=== PATIENT | female | born 1960 | race Caucasian/White ===

== ENCOUNTER 2018-11-19 23:54 | Inpatient (IN) | payer OTHER ==
[~2018-11-19] VITALS: Ht 157.5 cm; Wt 38.6 kg
[~2018-11-19 23:54] MED LIST: ACCUNEB SO1.25 MG/1 INH; ACETAMINOPHEN325 M1 PO; ADVAIR 250-501 EACH IH; ADVAIR 250-501 EACH INH; ADVAIR HFA 230M12 GM; ALBUTEROL INH; ALBUTEROL2.5 MG/3 M PO; ALBUTEROL2.5 MG/31 IH; ALBUTEROL2.5 MG/31 INH; AMOXICILLIN 50500 MG PO; AVELOX 400 MG400 MG PO; Albuterol PO; BUTALB-APAP-CA1 EACH PO; CARDIZEM CD240 MG; CLONIDINE; COMBIVENT IN; DIFLUCAN100 MG PO; DUONEB 2.5-0.5 M3 ML INH; FLUCONAZOLE 10100 MG PO; LEVAQUIN 500 M500 M2 PO; LORTAB 10 MG-3473 ML PO; LORTABELXR PO; MUCINEX TA600 MG/TA2 PO; NORCO 5-325 TA1 EACH PO; NYSTATIN 1100000 U/M PO; PREDNISONE 10 M10 MG PO; PREDNISONE 20 M20 MG PO; SINGULAIR 10 MG10 M1 PO; SPIRIVA INH; SPIRIVA18 MCG INH; TUSNEL CAPSULE1 EACH PO; TUSSIONEX PENN473 ML PO; TYLENOL325 MG PO; VANCOMYCIN1.25 GM/21 IVPB; VENTOLIN HFA 1818 GM INH; VENTOLIN HFA INH8 GM INH; VENTOLIN17 GM INH; VICODIN 5-5001 EACH PO; XANAX 0.25 MG0.25 MG PO; ZPAK PO
[2018-11-20] VITALS (108 sets, daily range): BP systolic 90–137; BP diastolic 57–91
[2018-11-20 00:36] LABS: ABSOLUTE EOSINOPHILS 0.1 thou/uL (0.0-0.7); ABSOLUTE MONOCYTES 1.7 thou/uL (0.0-1.2); ABSOLUTE NEUTROPHILS 8.4 thou/uL (1.6-8.1); BASOPHILS 0.2 %; HEMATOCRIT 43.7 % (37.0-47.0); HEMOGLOBIN 14.3 gm/dL (12.0-15.0); LYMPHOCYTES 16.5 %; MCH 30.2 pg (26.0-34.0); MCHC 32.6 g/dL (28.0-37.0); MCV 92.6 fL (80.0-100.0); MONOCYTES 13.7 %; MPV 9.2 fl. (7.2-11.1); NUCLEATED RBCS 0 /100WBC; PLATELET COUNT* 272 thou/uL (150-400); POLYS 68.6 %; RBC 4.72 mil/uL (4.20-5.00); RDW-CV 14.4 % (10.5-14.5); WBC 12.3 thou/uL (4.0-11.0)
[2018-11-20 00:50] LABS: ANION GAP 2 mmol/L (7-16); BUN 13 mg/dL (7-18); CHLORIDE 95 mmol/L (98-107); CO2 41 mmol/L (21-32); CREATININE 0.7 mg/dL (0.6-1.3); GLUCOSE 128 mg/dL (70-99); POTASSIUM 4.5 mmol/L (3.5-5.1); SODIUM 138 mmol/L (136-145); TROPONIN-I LEVEL <0.06 ng/mL (<0.06)
[2018-11-20 00:52] LABS: ALKALINE PHOSPHATASE 89 U/L (46-116); NT-PRO BRAIN NAT PEPTIDE 154 pg/mL (<300); PROTIME 10.4 Seconds (9.20-11.50); SGOT 17 U/L (15-37); SGPT 37 U/L (30-65); TOTAL BILIRUBIN 0.2 mg/dL (<0.1-1.0); TOTAL PROTEIN 7.7 g/dL (6.4-8.2)
[2018-11-20 01:20] LABS: BE 3.5 mmol/L (-2 to +3)
[2018-11-20 01:22] LABS: PCO2 94.3 mmHg (35.0-45.0); PO2 237.2 mmHg (75.0-100.0); pH 7.187 (7.340-7.450)
[2018-11-20 03:02] LABS: BE 0.5 mmol/L (-2 to +3); PO2 117.9 mmHg (75.0-100.0)
[2018-11-20 03:06] LABS: PCO2 109.7 mmHg (35.0-45.0); pH 7.102 (7.340-7.450)
--- NOTE | 2018-11-20 11:15 | EKG ---
[place] [address] ELECTROCARDIOGRAM REPORT Name: GREGORIA RAI Room: [address] ADM IN .R.#: [id number] Admission: 11/20/18 Attend Phys: Janes Ruiz Discharge: Date of : 62 Report #: [id number] THIS REPORT FOR: //name// [facility] ED Test Date: 2018-11-20 Test Time: 00:34:38 Pat Name: GREGORIA RAI Department: Room: [facility] Gender: F Copy Operator: Kelsea CORMIER : 1960 Requested By: Elida Urban Order Number: [id number] MD: Guanakito Torres Measurements Intervals [place] Rate: 110 P: 94 [place]: 121 QRS: 64 QRSD: 98 T: 66 QT: 322 QTc: 436 Interpretive Statements Sinus tachycardia Biatrial enlargement Consider anterior infarct Compared to ECG 12/03/2014 13:03:23 Atrial abnormality now present Myocardial infarct finding now present Electronically Signed On 11-20-2018 11:15:36 CDT by Guanakito Torres [email or web address] <ELECTRONICALLY SIGNED> By: Guanakito Torres MD, [facility] 11/20/18 1115 0034 0034 Guanakito Torres MD, [facility] /EPI
[2018-11-20 12:36] LABS: BE 1.5 mmol/L (-2 to +3); PCO2 45.5 mmHg (35.0-45.0); pH 7.389 (7.340-7.450)
[2018-11-20 12:37] LABS: PO2 141.2 mmHg (75.0-100.0)
--- NOTE | 2018-11-20 13:12 | 2DMMODE ---
[place] [address] 2 D/M-MODE ECHOCARDIOGRAM Name: GREGORIA RAI Room: [address] IN [facility]#: [id number] Admission: 11/20/18 Attend Phys: Roberto Carlos Recio Discharge: Date of : 62 Date of Service: 11/20/18 1312 Report #: [id number] THIS REPORT FOR: //name// APPROVED REPORT Study performed: 11/20/2018 10:22:35 EXAM: Comprehensive 2D, Doppler, and color-flow Echocardiogram Patient Location: In-Patient Room #: [facility] Status: routine BSA: 1.32 HR: 99 bpm BP: 105/71 mmHg Rhythm: NSR Other Information Study Quality: Good Indications COPD Dyspnea Resp failure 2D Dimensions IVSd: 9.77 (7-11mm) LVOT Diam: 20.04 (18-24mm) LVDd: 27.26 mm PWd: 9.25 (7-11mm) LVDs: 19.37 (25-40mm) Aortic Root: 28.78 mm Volumes Left Atrial Volume (Systole) LA ESV Index: 8.60 mL/m2 Aortic Valve AoV Peak Preet.: 1.14 m/s AO Peak Gr.: 5.22 mmHg LVOT Max P.52 mmHg AO Mean Gr.: 3.17 mmHg LVOT Mean P.40 mmHg LVOT Max V: 1.06 m/s AO V2 VTI: 16.36 cm LVOT Mean V: 0.72 m/s LILIAN (VTI): 3.06 cm2 LVOT V1 VTI: 15.89 cm Mitral Valve E/A Ratio: 0.86 [place] [address] 2 D/M-MODE ECHOCARDIOGRAM Name: GREGORIA RAI Room: [address]#: [id number] Admission: 11/20/18 Attend Phys: Roberto Carlos Recio Discharge: Date of : 62 Date of Service: 11/20/18 1312 Report #: [id number] MV Decel. Time: 223.77 ms MV E Max Preet.: 0.74 m/s MV PHT: 64.89 ms MVA (PHT): 3.39 cm2 TDI E/Lateral E': 8.22 E/Medial E': 8.22 Medial E' Preet.: 0.09 m/s Lateral E' Preet.: 0.09 m/s Pulmonary Valve PV Peak Preet.: 1.16 m/s PV Peak Gr.: 5.42 mmHg Tricuspid Valve RAP Estimate: 5.00 mmHg TR Peak Gr.: 23.98 mmHg RVSP: 29.00 mmHg PA Pressure: 29.00 mmHg Left Ventricle The left ventricle is normal size. There is normal LV segmental wall motion. There is normal left ventricular wall thickness. Left ventricular systolic function is normal. The left ventricular ejection fraction is within the normal range. LVEF is 65-70%. Grade I - abnormal relaxation pattern. Right Ventricle The right ventricle is normal size. The right ventricular systolic function is normal. Atria The left atrium size is normal. The right atrium size is normal. Aortic Valve The aortic valve is normal in structure. No aortic regurgitation is present. There is no aortic valvular stenosis. Mitral Valve The mitral valve is normal in structure. There is no mitral valve regurgitation noted. No evidence of mitral valve stenosis. Tricuspid Valve The tricuspid valve is normal in structure. Mild tricuspid regurgitation. No pulmonary hypertension[place] [address] 2 D/M-MODE ECHOCARDIOGRAM Name: GREGORIA RAI Room: [address]#: [id number] Admission: 11/20/18 Attend Phys: Roberto aCrlos Recio Discharge: Date of : 62 Date of Service: 11/20/18 1312 Report #: [id number] The pulmonary valve is normal in structure. There is no pulmonic valvular regurgitation. Great Vessels The aortic root is normal in size. IVC is normal in size and collapses >50% with inspiration. Pericardium There is no pericardial effusion. <Conclusion> The left ventricle is normal size. There is normal left ventricular wall thickness. Left ventricular systolic function is normal. The left ventricular ejection fraction is within the normal range. LVEF is 65-70%. Grade I - abnormal relaxation pattern. The right ventricle is normal size. The left atrium size is normal. The aortic valve is normal in structure. The mitral valve is normal in structure. The tricuspid valve is normal in structure. Mild tricuspid regurgitation. No pulmonary hypertension. IVC is normal in size and collapses >50% with inspiration. There is no pericardial effusion. There is normal LV segmental wall motion. <ELECTRONICALLY SIGNED> By: Guanakito Torres MD, FACC 11/20/18 131 11 11 Guanakito Torres MD, FACC /INF
[2018-11-21] VITALS (37 sets, daily range): BP systolic 80–177; BP diastolic 50–104
[2018-11-21 03:39] LABS: HEMATOCRIT 31.9 % (37.0-47.0); MCH 30.4 pg (26.0-34.0); MCHC 32.9 g/dL (28.0-37.0); MCV 92.3 fL (80.0-100.0); MPV 9.1 fl. (7.2-11.1); RBC 3.46 mil/uL (4.20-5.00); RDW-CV 14.4 % (10.5-14.5); WBC 12.9 thou/uL (4.0-11.0)
[2018-11-21 03:49] LABS: HEMOGLOBIN 10.5 gm/dL (12.0-15.0)
[2018-11-21 03:57] LABS: ALBUMIN 2.5 g/dL (3.4-5.0); CREATININE 0.4 mg/dL (0.6-1.3); MAGNESIUM 2.1 mg/dL (1.8-2.4); POTASSIUM 4.7 mmol/L (3.5-5.1); TOTAL BILIRUBIN 0.2 mg/dL (<0.1-1.0); TOTAL PROTEIN 5.1 g/dL (6.4-8.2)
[2018-11-21 05:54] LABS: BE 2.6 mmol/L (-2 to +3); PO2 90.1 mmHg (75.0-100.0); pH 7.367 (7.340-7.450)
[2018-11-21 05:56] LABS: PCO2 51.1 mmHg (35.0-45.0)
[2018-11-21 10:17] LABS: BE 1.1 mmol/L (-2 to +3); PO2 84.7 mmHg (75.0-100.0)
[2018-11-21 10:21] LABS: pH 7.243 (7.340-7.450)
[2018-11-21 10:22] LABS: PCO2 71.6 mmHg (35.0-45.0)
--- NOTE | 2018-11-21 16:31 | CON ---
[address] [address] CONSULTATION Name: GREGORIA RAI Room: [address] IN ..#: [id number] Admission: 11/20/18 Attend Phys: Janes Ruiz Discharge: Date of : 62 Report #: [id number] THIS REPORT FOR: //name// CC: LOLY physician/PCP Roberto Carlos Recio DATE OF SERVICE: 11/20/2018 NEW PATIENT EVALUATION REASON FOR EVALUATION: Acute respiratory failure, COPD with exacerbation. HISTORY OF PRESENT ILLNESS: The patient is currently not intubated. History was obtained from her, the nursing staff records and her daughter, Lucy. She is basically a 58-year-old with a history of COPD. She was admitted back in 2014 for severe COPD exacerbation. She has a previous history of MRSA pneumonia, history of Klebsiella pneumonia and this dates back to 2014. This time, she was admitted with progressive shortness of breath and productive cough. In the ED, she had severe hypercapnic respiratory failure requiring intubation. Unfortunately, we do not have both intubation, blood gas, which I have ordered. At this time, she initially was hemodynamically stable; however, after starting propofol, she is on Levophed at 5. She has productive cough with thick secretions. Initially, was intubated. A previous history shows that in 2014, her FEV1 was 32%, predicted some reversibility. Her FEV1 was 0.7. Decreased ratio of FEV1 to FVC ratio. Her CT scan in 2015 showed emphysema. Echocardiogram showed normal ejection fraction in 2015. At that time, was treated with antibiotic in 2015. At this time, the patient is on vancomycin and Zosyn. PAST MEDICAL HISTORY: Asthma/COPD, pneumonia in 2019, hypertension. PAST SURGICAL HISTORY: Hysterectomy, appendectomy, cholecystectomy, back surgery. MEDICATIONS: She is on nebulizer that her daughter is using several times a day, Ventolin. She is on Singulair. Prednisone 10 mg daily. ALLERGIES: ASPIRIN, ERYTHROMYCIN. FAMILY HISTORY: Noncontributory. SOCIAL HISTORY: Questionable continuous smoking. Per daughter, she thinks [place] may [place] [address] CONSULTATION Name: GREGORIA RAI [place] Room: [address]#: [id number] Admission: 11/20/18 Attend Phys: Janes Ruiz Discharge: Date of : 62 Report #: [id number] REVIEW OF SYSTEMS: Not obtainable except for as above, cough. Worsening shortness of breath, otherwise not obtainable. The patient is intubated and sedated. PHYSICAL EXAMINATION: VITAL SIGNS: Her pulse is regular at 104, respiratory rate 20, she is afebrile. O2 saturation 99% on vent setting of 20, tidal volume 400 and a rate of 20. HEAD AND NECK: Neck is supple. Oral mucosa is clear. CHEST: Clear to auscultation, equal breath sounds, no wheezing. CARDIOVASCULAR: Regular rhythm. ABDOMEN: Soft, nontender. EXTREMITIES: Trace edema. PSYCHIATRIC AND NEUROLOGIC: Not able to evaluate. LABORATORY DATA AND OTHER DATABASE: Arterial blood gas, pH 7.1, pCO2 109, pO2 117. This was on BiPAP, which she has failed. She is currently on the vent and unfortunately we do not have a blood gas. Serology is pending. A chest x-ray, which I have reviewed as well showed hyperinflation and no consolidation; however, increased haziness in the left lower and left perihilar area. ASSESSMENT AND PLAN: 1. Acute hypercapnic respiratory failure related to chronic obstructive pulmonary disease exacerbation and bronchitis, possible developing pneumonia. Agree with vancomycin and Zosyn. We will add Levaquin for atypical coverage. At this time, continue steroids. At this time, agree and recommend high-dose steroids with a previous history of asthma. Currently, the patient is on bronchodilator treatment, which I agree on. Recommend to hold the Versed and continue propofol, currently on steroids every 8 hours. 2. Possible sepsis, currently on vancomycin and Zosyn. Add Levaquin. 3. Advanced chronic obstructive pulmonary disease. Discussed with her daughter. Prognosis is guarded. PLAN: 1. Daily weaning trial. 2. Likely will need to wean to BiPAP when she tolerates weaning trial. We will start weaning trials with spontaneous breathing trial in the morning. 3. Continue antibiotic and add Levaquin. 4. Obtain sputum sample. 5. I will obtain chest x-ray in the morning. Critical care time taking care of the patient, discussing with family and nursing staff was 40 minutes. <ELECTRONICALLY SIGNED> By: Mary Rod MD 11/21/18 1631 1207 [id number] Urmila Rod MD /nt
[2018-11-22] VITALS (38 sets, daily range): BP systolic 95–183; BP diastolic 68–99
[2018-11-22 04:52] LABS: HEMATOCRIT 34.2 % (37.0-47.0); HEMOGLOBIN 11.1 gm/dL (12.0-15.0); MCHC 32.6 g/dL (28.0-37.0); MCV 92.1 fL (80.0-100.0); MPV 9.8 fl. (7.2-11.1); RBC 3.71 mil/uL (4.20-5.00); RDW-CV 14.5 % (10.5-14.5); WBC 11.5 thou/uL (4.0-11.0)
[2018-11-22 05:07] LABS: ALBUMIN 2.5 g/dL (3.4-5.0); CALCIUM 8.4 mg/dL (8.5-10.1); CREATININE 0.5 mg/dL (0.6-1.3); MAGNESIUM 2.2 mg/dL (1.8-2.4); POTASSIUM 3.9 mmol/L (3.5-5.1); TOTAL BILIRUBIN 0.2 mg/dL (<0.1-1.0); TOTAL PROTEIN 5.4 g/dL (6.4-8.2)
[2018-11-23] VITALS (39 sets, daily range): BP systolic 89–178; BP diastolic 69–101
[2018-11-23 03:45] LABS: HEMATOCRIT 35.1 % (37.0-47.0); HEMOGLOBIN 11.5 gm/dL (12.0-15.0); MCH 30.4 pg (26.0-34.0); MCHC 32.9 g/dL (28.0-37.0); MCV 92.5 fL (80.0-100.0); MPV 9.9 fl. (7.2-11.1); RBC 3.79 mil/uL (4.20-5.00); RDW-CV 14.8 % (10.5-14.5); WBC 9.6 thou/uL (4.0-11.0)
[2018-11-23 03:58] LABS: CALCIUM 8.8 mg/dL (8.5-10.1); CREATININE 0.5 mg/dL (0.6-1.3); POTASSIUM 4.7 mmol/L (3.5-5.1)
[2018-11-23 13:04] LABS: BE 6.8 mmol/L (-2 to +3); PO2 63.5 mmHg (75.0-100.0)
[2018-11-23 13:11] LABS: pH 7.244 (7.340-7.450)
[2018-11-23 13:12] LABS: PCO2 88.6 mmHg (35.0-45.0)
[2018-11-24] VITALS (15 sets, daily range): BP systolic 87–133; BP diastolic 40–82
[2018-11-24 03:48] LABS: HEMATOCRIT 34.2 % (37.0-47.0); HEMOGLOBIN 11.1 gm/dL (12.0-15.0); MCH 30.1 pg (26.0-34.0); MCHC 32.4 g/dL (28.0-37.0); MCV 92.8 fL (80.0-100.0); MPV 9.6 fl. (7.2-11.1); RBC 3.68 mil/uL (4.20-5.00); RDW-CV 14.7 % (10.5-14.5); WBC 8.4 thou/uL (4.0-11.0)
[2018-11-24 04:03] LABS: ALBUMIN 2.5 g/dL (3.4-5.0); CALCIUM 8.7 mg/dL (8.5-10.1); CREATININE 0.5 mg/dL (0.6-1.3); MAGNESIUM 2.4 mg/dL (1.8-2.4); TOTAL BILIRUBIN 0.2 mg/dL (<0.1-1.0); TOTAL PROTEIN 5.4 g/dL (6.4-8.2)
[2018-11-24 05:56] LABS: BE 12.9 mmol/L (-2 to +3); pH 7.424 (7.340-7.450)
[2018-11-24 06:01] LABS: PCO2 61.9 mmHg (35.0-45.0); PO2 132.9 mmHg (75.0-100.0)
[2018-11-24 11:53] LABS: BE 9.8 mmol/L (-2 to +3); PO2 100.5 mmHg (75.0-100.0); pH 7.377 (7.340-7.450)
[2018-11-24 11:56] LABS: PCO2 64.6 mmHg (35.0-45.0)
[2018-11-25] VITALS (22 sets, daily range): BP systolic 81–134; BP diastolic 47–82
[2018-11-25 05:21] LABS: HEMATOCRIT 34.4 % (37.0-47.0); HEMOGLOBIN 11.3 gm/dL (12.0-15.0); MCH 30.5 pg (26.0-34.0); MCHC 32.8 g/dL (28.0-37.0); MCV 92.8 fL (80.0-100.0); MPV 9.8 fl. (7.2-11.1); RBC 3.7 mil/uL (4.20-5.00); RDW-CV 14.4 % (10.5-14.5); WBC 8.5 thou/uL (4.0-11.0)
[2018-11-25 05:51] LABS: CALCIUM 8.5 mg/dL (8.5-10.1); CREATININE 0.5 mg/dL (0.6-1.3); MAGNESIUM 2.4 mg/dL (1.8-2.4); POTASSIUM 4.4 mmol/L (3.5-5.1)
[2018-11-25 06:23] LABS: BE 6.7 mmol/L (-2 to +3); pH 7.341 (7.340-7.450)
[2018-11-25 06:26] LABS: PCO2 67.6 mmHg (35.0-45.0); PO2 127.7 mmHg (75.0-100.0)
[2018-11-25 10:27] LABS: BE 4.6 mmol/L (-2 to +3); PO2 81.7 mmHg (75.0-100.0)
[2018-11-25 10:30] LABS: PCO2 83.2 mmHg (35.0-45.0); pH 7.237 (7.340-7.450)
[2018-11-26] VITALS (22 sets, daily range): BP systolic 86–128; BP diastolic 59–80
[2018-11-26 04:20] LABS: HEMATOCRIT 34.1 % (37.0-47.0); HEMOGLOBIN 11.1 gm/dL (12.0-15.0); MCH 30.3 pg (26.0-34.0); MCHC 32.6 g/dL (28.0-37.0); MPV 9.9 fl. (7.2-11.1); RBC 3.66 mil/uL (4.20-5.00); RDW-CV 14.6 % (10.5-14.5); WBC 10.5 thou/uL (4.0-11.0)
[2018-11-26 04:38] LABS: CALCIUM 8.4 mg/dL (8.5-10.1); CREATININE 0.5 mg/dL (0.6-1.3); MAGNESIUM 2.2 mg/dL (1.8-2.4); POTASSIUM 4.5 mmol/L (3.5-5.1)
[2018-11-26 10:44] LABS: BE 3.9 mmol/L (-2 to +3)
[2018-11-26 10:48] LABS: PCO2 90.5 mmHg (35.0-45.0); PO2 133.5 mmHg (75.0-100.0)
[2018-11-27] VITALS (21 sets, daily range): BP systolic 101–158; BP diastolic 66–87
[2018-11-27 04:41] LABS: HEMATOCRIT 31.4 % (37.0-47.0); HEMOGLOBIN 10.4 gm/dL (12.0-15.0); MCH 30.8 pg (26.0-34.0); MCHC 33.1 g/dL (28.0-37.0); MCV 93.2 fL (80.0-100.0); MPV 9.8 fl. (7.2-11.1); RBC 3.37 mil/uL (4.20-5.00); RDW-CV 14.5 % (10.5-14.5); WBC 10.6 thou/uL (4.0-11.0)
[2018-11-27 04:59] LABS: CALCIUM 8.6 mg/dL (8.5-10.1); CREATININE 0.3 mg/dL (0.6-1.3); MAGNESIUM 2.1 mg/dL (1.8-2.4); POTASSIUM 4.7 mmol/L (3.5-5.1)
[2018-11-27 12:20] LABS: BE 4.3 mmol/L (-2 to +3); PO2 80.1 mmHg (75.0-100.0)
[2018-11-27 12:25] LABS: PCO2 90.6 mmHg (35.0-45.0); pH 7.206 (7.340-7.450)
[2018-11-28] VITALS (25 sets, daily range): BP systolic 115–163; BP diastolic 68–86
--- NOTE | 2018-11-28 07:50 | CON ---
[address] [address] CONSULTATION Name: GREGORIA RAI Room: [address] IN .R.#: [id number] Admission: 11/20/18 Attend Phys: Janes Ruiz Discharge: Date of : 62 Report #: [id number] THIS REPORT FOR: //name// CC: Guanakito Recio DATE OF SERVICE: 11/24/2018 INFECTIOUS DISEASE CONSULTATION ATTENDING PHYSICIAN: Dr. Recio. REASON FOR EVALUATION: Severe pneumonitis in the setting of later-stage COPD complicated by respiratory failure. HISTORY OF PRESENT ILLNESS: Chart reviewed, patient examined. This is a 58-year-old woman with a known history of COPD, this is apparently oxygen-requiring, does receive intermittent corticosteroids as well, who presented on 11/20/2018 to the Emergency Room with complaints of progressive dyspnea and associated cough, somewhat productive. Again, she is on the vent at this point and all history is obtained via the record. She was found to be hypoxemic. Pending respiratory failure, was imaged, showed initial hyperexpansion, subsequently was intubated, again had significant evidence of inflammatory changes. Blood and sputum cultures are pending. Empirically started on vancomycin as well as piperacillin and tazobactam. Of note, does have history of MRSA isolated from her respiratory tract back in 2013 and in 2015 with Klebsiella pneumoniae. Hemodynamically, she is reasonably stable, maintaining saturations. She has not been febrile. ALLERGIES: LISTED TO ERYTHROMYCIN, ASPIRIN. MEDICATIONS: Include vancomycin, montelukast, budesonide, arformoterol, albuterol, enoxaparin, Zosyn, guaifenesin, methylprednisolone 62.5 IV q. 8, p.r.n. analgesics, antiemetics, pantoprazole. She is on propofol, has been weaned off norepinephrine. PAST MEDICAL AND SURGICAL HISTORY: As described above, underlying chronic obstructive pulmonary disease with O2-requiring history of asthmatic component, hypertension. Previous hysterectomy, appendectomy, cholecystectomy, 3 back surgeries, shoulder surgeries. SOCIAL HISTORY: Former smoker. No ethanol. No reported illicit drug use. FAMILY HISTORY: Noncontributory. REVIEW OF SYSTEMS: [place] [address] CONSULTATION Name: GREGORIA RAI Room: [address]#: [id number] Admission: 11/20/18 Attend Phys: Janes Ruiz Discharge: Date of : 62 Report #: [id number] PHYSICAL EXAMINATION: GENERAL: She appears chronically undernourished. She is supine, head of bed is elevated. She is intubated. She has OG tube in place as well. She is on enteral feedings at low rate. HEENT: Normocephalic. NECK: Supple. LUNGS: Scattered coarse breath sounds, diminished overall. HEART: Regular with ectopy. Seems to have soft systolic murmur. ABDOMEN: Soft. There are no apparent peritoneal signs. EXTREMITIES: Distal lower extremities do not have significant amount of edema at this point. GENITOURINARY: Deferred. RECTAL: Deferred. LABORATORY DATA: Most recent ABG from this morning, pH 7.244, pCO2 of 88.6 and pO2 of 63.5 that was on FiO2 of 40% on CPAP trial. Chest x-ray: Marked air trapping, emphysematous changes and bulla. Electrolytes: Sodium 146, potassium 4.0, chloride 105, bicarbonate is 39, BUN and creatinine 23 and 0.5, glucose of 135. Albumin of 2.5, total protein is 5.4. AST of 32, ALT of 92. Total bilirubin of 0.2. CBC: White count 8.4, H and H 11.1 and 34.2, platelets of 188. Prealbumin of 29. Blood cultures are sterile thus far. ASSESSMENT AND PLAN: Pneumonitis, likely multifactorial, certainly severe underlying lung disease based on available evidence. I cannot exclude an infectious component, likely bacterial, and we will continue empiric antimicrobial therapy. At this point, we are awaiting on cultures including sputum. She appears to have significant issues with under nourishment as well. Try to optimize her status with supplemental enteral feedings, efforts to wean off respiratory support. Overall, prognosis appears quite guarded. <ELECTRONICALLY SIGNED> By: Florentin Hackett MD 11/28/18 0750 0742 2225Joeladia Hackett MD /nt
[2018-11-28 08:30] LABS: ABSOLUTE LYMPHOCYTES 0.6 thou/uL (0.8-5.3); ABSOLUTE MONOCYTES 0.6 thou/uL (0.0-1.2); BASOPHILS 0.3 %; HEMOGLOBIN 10.5 gm/dL (12.0-15.0); LYMPHOCYTES 4.5 %; MCH 29.4 pg (26.0-34.0); MCHC 31.9 g/dL (28.0-37.0); MCV 92.3 fL (80.0-100.0); MONOCYTES 5.3 %; MPV 9.3 fl. (7.2-11.1); NUCLEATED RBCS 0 /100WBC; PLATELET COUNT* 274 thou/uL (150-400); POLYS 89.9 %; RBC 3.57 mil/uL (4.20-5.00); RDW-CV 14.4 % (10.5-14.5); WBC 12.3 thou/uL (4.0-11.0)
[2018-11-28 10:44] LABS: BE 14.3 mmol/L (-2 to +3); PO2 84.2 mmHg (75.0-100.0); pH 7.431 (7.340-7.450)
[2018-11-28 11:09] LABS: PCO2 61.3 mmHg (35.0-45.0)
[2018-11-28 12:09] LABS: BE 11.6 mmol/L (-2 to +3); PO2 119.1 mmHg (75.0-100.0); pH 7.377 (7.340-7.450)
[2018-11-29] VITALS (24 sets, daily range): BP systolic 121–171; BP diastolic 76–114
[2018-11-29 09:15] LABS: BE 9.8 mmol/L (-2 to +3); PO2 89.5 mmHg (75.0-100.0); pH 7.343 (7.340-7.450)
[2018-11-29 09:20] LABS: PCO2 71.8 mmHg (35.0-45.0)
[2018-11-30] VITALS (27 sets, daily range): BP systolic 94–170; BP diastolic 43–93
[2018-11-30 04:05] LABS: ADENOVIRUS Negative (Negative); INFLUENZA A Negative (Negative); INFLUENZA B Negative (Negative); METAPNEUMOVIRUS Negative (Negative); PARAINFLUENZA 1 Negative (Negative); PARAINFLUENZA 2 Negative (Negative); PARAINFLUENZA 3 Negative (Negative); RHINOVIRUS Negative (Negative); RSV A Negative (Negative); RSV B Negative (Negative)
[2018-11-30 08:45] LABS: HEMATOCRIT 36.6 % (37.0-47.0); HEMOGLOBIN 11.7 gm/dL (12.0-15.0); MCH 29.2 pg (26.0-34.0); MCHC 32.1 g/dL (28.0-37.0); MPV 9.5 fl. (7.2-11.1); RBC 4.02 mil/uL (4.20-5.00); WBC 15.9 thou/uL (4.0-11.0)
[2018-11-30 09:01] LABS: ALBUMIN 2.8 g/dL (3.4-5.0); CALCIUM 8.5 mg/dL (8.5-10.1); CREATININE 0.4 mg/dL (0.6-1.3); POTASSIUM 3.4 mmol/L (3.5-5.1); TOTAL BILIRUBIN 0.4 mg/dL (<0.1-1.0)
--- NOTE | 2018-11-30 09:44 | EKG ---
[place] [address] ELECTROCARDIOGRAM REPORT Name: GREGORIA RAI Room: [address] ADM IN .R.#: [id number] Admission: 11/20/18 Attend Phys: Janes Ruiz Discharge: Date of : 62 Report #: [id number] THIS REPORT FOR: //name// [facility] Test Date: 2018-11-29 Test Time: 19:25:59 Pat Name: GREGORIA RAI Department: Room: [address] Gender: F Senior Ui Ux Designer: Susie DENIS RN : 1960 Requested By: Majo Fowler Order Number: [id number] Jamar MD: Oswald Slater Measurements Intervals [place] Rate: 78 P: 84 CO: 111 QRS: -42 QRSD: 85 T: 86 QT: 361 QTc: 412 Interpretive Statements Sinus rhythm Borderline short CO interval Right atrial enlargement Baseline wander in lead(s) V4 Compared to ECG 11/20/2018 00:34:38 Sinus tachycardia no longer present Electronically Signed On 11-30-2018 9:44:10 CDT by Oswald Slater [email or web address] <ELECTRONICALLY SIGNED> By: Oswald Slater MD, FACC 11/30/18 0944 24 24 Oswald Slater MD, FAC /EPI
[2018-12-01] VITALS (11 sets, daily range): BP systolic 89–154; BP diastolic 63–102
[2018-12-01 08:44] LABS: HEMATOCRIT 34.3 % (37.0-47.0); MCH 29.4 pg (26.0-34.0); MCV 91.9 fL (80.0-100.0); MPV 9.1 fl. (7.2-11.1); NUCLEATED RBCS 0 /100WBC; PLATELET COUNT* 272 thou/uL (150-400); RBC 3.73 mil/uL (4.20-5.00); RDW-CV 14.5 % (10.5-14.5); WBC 11.7 thou/uL (4.0-11.0)
[2018-12-01 09:00] LABS: CALCIUM 8.6 mg/dL (8.5-10.1); CREATININE 0.4 mg/dL (0.6-1.3); POTASSIUM 4.3 mmol/L (3.5-5.1)
[2018-12-01 09:07] LABS: ABSOLUTE LYMPHOCYTES 0.9 thou/uL (0.8-5.3); ABSOLUTE MONOCYTES 0.6 thou/uL (0.0-1.2); ABSOLUTE NEUTROPHILS 10.2 thou/uL (1.6-8.1); PLATELET ESTIMATE ADEQUATE
[2018-12-01 10:58] LABS: BE 8.9 mmol/L (-2 to +3); PO2 92.1 mmHg (75.0-100.0); pH 7.355 (7.340-7.450)
[2018-12-01 11:01] LABS: PCO2 67.3 mmHg (35.0-45.0)
[2018-12-02] VITALS (7 sets, daily range): BP systolic 117–176; BP diastolic 77–101
[2018-12-02 05:06] LABS: BE 12.9 mmol/L (-2 to +3); pH 7.403 (7.340-7.450)
[2018-12-02 05:26] LABS: HEMATOCRIT 33.9 % (37.0-47.0); HEMOGLOBIN 10.8 gm/dL (12.0-15.0); MCH 29.6 pg (26.0-34.0); MCHC 31.9 g/dL (28.0-37.0); MCV 92.6 fL (80.0-100.0); MPV 9.9 fl. (7.2-11.1); RBC 3.66 mil/uL (4.20-5.00); RDW-CV 14.8 % (10.5-14.5); WBC 17.7 thou/uL (4.0-11.0)
[2018-12-02 06:08] LABS: ALBUMIN 2.7 g/dL (3.4-5.0); CALCIUM 8.5 mg/dL (8.5-10.1); CREATININE 0.3 mg/dL (0.6-1.3); POTASSIUM 4.6 mmol/L (3.5-5.1); TOTAL BILIRUBIN 0.3 mg/dL (<0.1-1.0); TOTAL PROTEIN 5.6 g/dL (6.4-8.2)
[2018-12-03] VITALS (7 sets, daily range): BP systolic 105–160; BP diastolic 73–98
[2018-12-03 05:16] LABS: ABSOLUTE LYMPHOCYTES 0.8 thou/uL (0.8-5.3); ABSOLUTE MONOCYTES 0.5 thou/uL (0.0-1.2); ABSOLUTE NEUTROPHILS 14.8 thou/uL (1.6-8.1); BASOPHILS 0.1 %; EOSINOPHILS 0.1 %; HEMATOCRIT 35.5 % (37.0-47.0); HEMOGLOBIN 11.5 gm/dL (12.0-15.0); LYMPHOCYTES 4.7 %; MCH 29.6 pg (26.0-34.0); MCHC 32.2 g/dL (28.0-37.0); MCV 91.9 fL (80.0-100.0); MONOCYTES 3.1 %; MPV 9.5 fl. (7.2-11.1); NUCLEATED RBCS 0 /100WBC; PLATELET COUNT* 325 thou/uL (150-400); RBC 3.86 mil/uL (4.20-5.00); WBC 16.1 thou/uL (4.0-11.0)
[2018-12-03 05:40] LABS: CREATININE 0.4 mg/dL (0.6-1.3); MAGNESIUM 1.9 mg/dL (1.8-2.4); POTASSIUM 4.6 mmol/L (3.5-5.1)
[2018-12-04] VITALS: BP 111/82
[2018-12-04 04:00] VITALS: BP 113/87
[2018-12-04 08:00] VITALS: BP 147/78
[2018-12-04 12:00] VITALS: BP 133/89
[2018-12-04 15:23] VITALS: BP 126/83
[2018-12-04 20:25] VITALS: BP 116/81
[2018-12-05] VITALS: BP 100/77
[2018-12-05 03:51] VITALS: BP 107/80
[2018-12-05 05:38] LABS: CALCIUM 9.6 mg/dL (8.5-10.1); CREATININE 0.5 mg/dL (0.6-1.3); MAGNESIUM 2.1 mg/dL (1.8-2.4); POTASSIUM 4.4 mmol/L (3.5-5.1)
[2018-12-05 08:00] VITALS: BP 110/69
--- NOTE | 2018-12-05 10:41 | EKG ---
[place] [address] ELECTROCARDIOGRAM REPORT Name: GREGORIA RAI Room: [address] ADM IN ..#: [id number] Admission: 11/20/18 Attend Phys: Janes Ruiz Discharge: Date of : 62 Report #: [id number] THIS REPORT FOR: //name// [facility] Test Date: 2018-12-04 Test Time: 22:14:44 Pat Name: GREGORIA RAI Department: Room: [address] Gender: F Fingernail Sculpturer: JAZ : 1960 Requested By: Jose David Perez Order Number: [id number] Reading MD: Jer Sherman Measurements Intervals [place] Rate: 120 P: 85 [place]: 109 QRS: -74 QRSD: 74 T: 92 QT: 302 QTc: 427 Interpretive Statements Sinus tachycardia Paired ventricular premature complexes Aberrant conduction of SV complex(es) Consider right atrial enlargement Probable inferior infarct, old Lateral leads are also involved Compared to ECG 11/29/2018 19:25:59 Ventricular premature complex(es) now present Aberrant conduction of supraventricular beat(s) now present Myocardial infarct finding now present Sinus rhythm no longer present Electronically Signed On 12-05-2018 10:41:21 CDT by Jer Sherman [email or web address] <ELECTRONICALLY SIGNED> By: Jer Sherman MD, [facility] 12/05/18 1041 2214 2214 Jer Sherman MD, [facility] /EPI
[2018-12-05 12:26] VITALS: BP 115/76
[2018-12-05 15:49] VITALS: BP 94/65
[2018-12-05 19:30] VITALS: BP 137/70
[2018-12-06] VITALS: BP 118/80
[2018-12-06 04:00] VITALS: BP 102/76
[2018-12-06 05:16] LABS: ABSOLUTE EOSINOPHILS 0.1 thou/uL (0.0-0.7); ABSOLUTE LYMPHOCYTES 1.4 thou/uL (0.8-5.3); ABSOLUTE MONOCYTES 0.7 thou/uL (0.0-1.2); ABSOLUTE NEUTROPHILS 10.3 thou/uL (1.6-8.1); BASOPHILS 0.1 %; EOSINOPHILS 0.4 %; HEMATOCRIT 36.5 % (37.0-47.0); HEMOGLOBIN 11.6 gm/dL (12.0-15.0); LYMPHOCYTES 11.1 %; MCH 29.5 pg (26.0-34.0); MCHC 31.9 g/dL (28.0-37.0); MCV 92.3 fL (80.0-100.0); MONOCYTES 5.4 %; MPV 9.5 fl. (7.2-11.1); NUCLEATED RBCS 0 /100WBC; PLATELET COUNT* 308 thou/uL (150-400); RBC 3.95 mil/uL (4.20-5.00); RDW-CV 14.8 % (10.5-14.5); WBC 12.4 thou/uL (4.0-11.0)
[2018-12-06 05:35] LABS: ANION GAP 6 mmol/L (7-16); BUN 23 mg/dL (7-18); CALCIUM 8.9 mg/dL (8.5-10.1); CHLORIDE 98 mmol/L (98-107); CHOLESTEROL 221 mg/dL (<200); CO2 33 mmol/L (21-32); CREATININE 0.5 mg/dL (0.6-1.3); GLUCOSE 111 mg/dL (70-99); HDL CHOLESTEROL 67 mg/dL (>40); LDL CHOLESTEROL 128 mg/dL (<100); POTASSIUM 4.6 mmol/L (3.5-5.1); SODIUM 137 mmol/L (136-145); TC:HDL 3.3 Ratio (Not establshd); TRIGLYCERIDE 132 mg/dL (<150); VLDL 26 mg/dL (<40)
[2018-12-06 05:37] LABS: SERUM ASSESSMENT Clear
[2018-12-06 08:00] VITALS: BP 99/77
[2018-12-06 12:30] VITALS: BP 136/84
[2018-12-06 14:00] LABS: BE 8.9 mmol/L (-2 to +3); pH 7.429 (7.340-7.450)
[2018-12-06 14:07] LABS: PO2 132.5 mmHg (75.0-100.0)
[2018-12-06 16:16] VITALS: BP 109/75
--- NOTE | 2018-12-06 17:11 | CARDNUC ---
[place] [address] CARDIAC NUCLEAR IMAGING REPORT Name: GREGORIA RAI Room: [address] IN [facility]#: [id number] Admission: 11/20/18 Attend Phys: Roberto Carlos Recio Discharge: Date of : 62 Date of Service: 12/06/18 1711 Report #: [id number] THIS REPORT FOR: //name// APPROVED REPORT Imaging Protocol: Rest Tc-99m/Stress Tc-99m 1 day Study performed: 12/06/2018 11:32:40 Indication: Chest pain, Dyspnea Patient Location: In-Patient Room #: 207 Stress Tech: Constance Higgins Stress Nurse: Anna Haro RN NM Tech:ROBERT Harding Ht: 5 ft 2 in Wt: 85 lbs BSA: 1.33 m2 BMI: 15.54 Medical History Medical History: copd, diabetes Medications: asa, hydralazine Allergies: erythromycin, lactobionate, asa Cardiac Risk Factors: age, diabettes, tobacco Exercise History: Sedentary Resting Data Rest SPECT myocardial perfusion imaging was performed in supine position 30 minutes following the intravenous injection of 10.6 mCi of Tc-99m Sestamibi. Time of rest injection: 1000 Date: 12/06/2018 The images were gated to evaluate regional wall motion and calculate left ventricular ejection fraction. Administration Route: IV Administration Site: Left Arm Pharmacologic Stress Pharmacologic stress test was performed by injecting Regadenoson 0.4 mg IV push over 10-15 seconds immediately followed by the intravenous injection of 33.9 mCi of Tc-99m Sestamibi. Time of stress injection: 1135 Administration Route: IV Administration Site: Left Arm The images were gated to evaluate regional wall motion and calculate left ventricular ejection fraction. Stress only was performed [place] [address] CARDIAC NUCLEAR IMAGING REPORT Name: GREGORIA RAI Room: [address]#: [id number] Admission: 11/20/18 Attend Phys: Roberto Carlos Recio Discharge: Date of : 62 Date of Service: 12/06/18 1711 Report #: [id number] Stress Test Details Stress Test: Pharmacologic stress testing performed using 0.4 mg of regadenoson per 5 mL given IV over 10 seconds. Reason for pharmacologic stress test: physical limitation. HR Max Heart Rate (APMHR): 163 bpm Resting HR: 81 bpm Target HR (85% APMHR): 138 bpm Max HR Achieved: 117 bpm % of APMHR: 71 Recovery HR: 118 bpm BP Resting BP: 105/70 mmHg Max BP: 98/68 mmHg Recovery BP: 110/68 mmHg ECG Resting ECG: Sinus Rhythm Stress ECG: Sinus Tachycardia ST Change: None Arrhythmia: None Recovery ECG: Sinus Rhythm Recovery ST Change: None Recovery Arrhythmia: None Clinical Reason for Termination: Completed protocol Exercise duration: 0 min sec Exercise capacity: 1 METs The patient tolerated Lexiscan infusion without significant cardiac symptoms. Nurse Comments pt generalized weakness, unable to stand and unable to walk on treadmill Stress ECG Conclusion The baseline 12-lead EKG shows sinus rhythm without significant ST or T wave abnormality. EKGs obtained during and post Lexiscan infusion show sinus rhythm and sinus tachycardia with no significant ST or T wave changes when compared to baseline. There were no stress-induced arrhythmias. Study Quality Study: Good Artifact: [place] [address] CARDIAC NUCLEAR IMAGING REPORT Name: BISHOPGREGORIA Tyrone Room: [address]#: [id number] Admission: 11/20/18 Attend Phys: Roberto Carlos Recio Discharge: Date of : 62 Date of Service: 12/06/18 1711 Report #: [id number] Study Data At rest, the left ventricular ejection fraction was 75%.. Post stress, the left ventricular ejection was 79%.. TID = 1.00. Perfusion Normal left ventricular perfusion. Wall Motion Normal left ventricular wall motion. Nuclear Conclusion ECG Findings: negative for ischemia Clinical Findings: negative for ischemia Nuclear Findings: negative for ischemia Exercise Capacity: not assessed Left Ventricular Function: normal Risk Study: low Myocardial perfusion images show no defect to suggest infarct or ischemia. Left ventricular systolic function is normal on gated studies. This is a low risk study. <Conclusion> The baseline 12-lead EKG shows sinus rhythm without significant ST or T wave abnormality. EKGs obtained during and post Lexiscan infusion show sinus rhythm and sinus tachycardia with no significant ST or T wave changes when compared to baseline. There were no stress-induced arrhythmias. <ELECTRONICALLY SIGNED> By: Oswald Slater MD, [facility] 12/06/181710 10 10 Oswald Slater MD, FACC /INF
[2018-12-06 22:15] VITALS: BP 126/80
[2018-12-07] VITALS: BP 136/79
[2018-12-07 04:00] VITALS: BP 90/66
[2018-12-07 08:00] VITALS: BP 112/73
[2018-12-07 11:45] VITALS: BP 130/77
[2018-12-07 15:22] VITALS: BP 128/78
[2018-12-07 20:00] VITALS: BP 130/83
[2018-12-08 00:12] VITALS: BP 110/66
[2018-12-08 03:44] VITALS: BP 93/64
[2018-12-08 07:23] VITALS: BP 125/75
[2018-12-08] MEDS ORDERED: PROTONIX 20 MG20 M1 PO (11:43)
[2018-12-08] MEDS ORDERED: PREDNISONE 10 M10 MG PO (11:44)
[2018-12-08] MEDS ORDERED: ADVAIR HFA 230M12 GM INH (11:45)
[2018-12-08] MEDS ORDERED: LEXAPRO 10 MG T10 M2 PO (11:46)
[2018-12-08 12:05] VITALS: BP 112/70
[2018-12-08 12:25] VITALS: BP 125/75
[2018-12-08 12:36] VITALS: BP 125/75
== END 2018-12-08 13:18 | disposition home health service (06) | DRG 870 ==
LOC: M.ERS 23:54 → M.TBA-ER 11-20 03:08 → M.ICU 11-20 03:08 → M.2W 12-02 15:32
PROVIDERS: Emergency Medicine; Family Medicine; Internal Medicine; Internal Medicine Infectious Disease; Internal Medicine Pulmonary Disease; ADMIT Internal Medicine
PROC: 02HV33Z Insertion of Infusion Device into Superior Vena Cava, Percutaneous Approach (ICD-10-PCS; principal; 2018-11-20)
PROC: 5A1955Z Respiratory Ventilation, Greater than 96 Consecutive Hours (ICD-10-PCS; principal; 2018-11-20)
PROC: 0BH17EZ Insertion of Endotracheal Airway into Trachea, Via Natural or Artificial Opening (ICD-10-PCS; principal; 2018-11-20)
PROC: 5A09357 Assistance with Respiratory Ventilation, Less than 24 Consecutive Hours, Continuous Positive Airway Pressure (ICD-10-PCS; 2018-11-28)
PROC: 5A09357 Assistance with Respiratory Ventilation, Less than 24 Consecutive Hours, Continuous Positive Airway Pressure (ICD-10-PCS; 2018-11-29)
PROC: 5A09357 Assistance with Respiratory Ventilation, Less than 24 Consecutive Hours, Continuous Positive Airway Pressure (ICD-10-PCS; 2018-11-30)
PROC: 5A09357 Assistance with Respiratory Ventilation, Less than 24 Consecutive Hours, Continuous Positive Airway Pressure (ICD-10-PCS; 2018-12-01)
PROC: 5A09357 Assistance with Respiratory Ventilation, Less than 24 Consecutive Hours, Continuous Positive Airway Pressure (ICD-10-PCS; 2018-12-03)
PROC: 5A09357 Assistance with Respiratory Ventilation, Less than 24 Consecutive Hours, Continuous Positive Airway Pressure (ICD-10-PCS; 2018-12-04)
PROC: 5A09357 Assistance with Respiratory Ventilation, Less than 24 Consecutive Hours, Continuous Positive Airway Pressure (ICD-10-PCS; 2018-12-07)
DX: A41.9 Sepsis, unspecified organism (principal); J96.22 Acute and chronic respiratory failure with hypercapnia; J96.21 Acute and chronic respiratory failure with hypoxia; J15.212 Pneumonia due to Methicillin resistant Staphylococcus aureus; I50.31 Acute diastolic (congestive) heart failure; J44.1 Chronic obstructive pulmonary disease with (acute) exacerbation; J44.0 Chronic obstructive pulmonary disease with (acute) lower respiratory infection; E44.0 Moderate protein-calorie malnutrition; Z68.1 Body mass index [BMI] 19.9 or less, adult; J45.909 Unspecified asthma, uncomplicated; J32.9 Chronic sinusitis, unspecified; I11.0 Hypertensive heart disease with heart failure; F41.9 Anxiety disorder, unspecified; Z90.710 Acquired absence of both cervix and uterus; Z90.49 Acquired absence of other specified parts of digestive tract; Z88.6 Allergy status to analgesic agent; Z88.1 Allergy status to other antibiotic agents; Z87.891 Personal history of nicotine dependence; Z99.81 Dependence on supplemental oxygen; Z79.899 Other long term (current) drug therapy

== ENCOUNTER → 2019-02-13 | Outpatient (CLI) | payer OTHER ==
[~2019-02-13] MED LIST changes: +ADVAIR HFA 230M12 GM INH; +LEXAPRO 10 MG T10 M2 PO; +PROTONIX 20 MG20 M1 PO
== END ==
LOC: M.RAD 09:27
DX: M81.0 Age-related osteoporosis without current pathological fracture (principal); Z79.52 Long term (current) use of systemic steroids

== ENCOUNTER 2019-09-06 18:59 | Emergency (ER) | payer OTHER ==
[~2019-09-06] VITALS: Ht 154.9 cm; Wt 49.4 kg
[2019-09-06] MEDS ORDERED: TRELEGY ELLIPT1 EACH INH (19:30)
[2019-09-06] MEDS ORDERED: SUPER THERAVIT1 EACH PO (19:30)
[2019-09-06] MEDS ORDERED: ASPIR 8181 M1 PO (19:30)
[2019-09-06] MEDS ORDERED: PROTONIX 20 MG20 MG PO (19:30)
[2019-09-06] MEDS ORDERED: FOSAMAX 70 MG T70 MG PO (19:31)
[2019-09-06] MEDS ORDERED: CALCIUM + D SO1 EACH PO (19:31)
[2019-09-06] MEDS ORDERED: HYDROCODON-ACE1 EAC7 PO (22:10)
[2019-09-06 22:32] VITALS: BP 144/88
== END 2019-09-06 22:33 | disposition home or self-care (01) ==
LOC: M.ERS 18:59
DX: S50.01XA Contusion of right elbow, initial encounter (principal); S80.01XA Contusion of right knee, initial encounter; S60.811A Abrasion of right wrist, initial encounter; I10 Essential (primary) hypertension; J44.9 Chronic obstructive pulmonary disease, unspecified; J45.909 Unspecified asthma, uncomplicated; Z90.49 Acquired absence of other specified parts of digestive tract; Z90.710 Acquired absence of both cervix and uterus; Z88.1 Allergy status to other antibiotic agents; Z87.891 Personal history of nicotine dependence; W10.8XXA Fall (on) (from) other stairs and steps, initial encounter; Y92.009 Unspecified place in unspecified non-institutional (private) residence as the place of occurrence of the external cause; Y93.89 Activity, other specified; Y99.8 Other external cause status

== ENCOUNTER → 2020-04-02 | Outpatient (CLI) | payer OTHER ==
[~2020-04-02] MED LIST changes: +ASPIR 8181 M1 PO; +CALCIUM + D SO1 EACH PO; +FOSAMAX 70 MG T70 MG PO; +HYDROCODON-ACE1 EAC7 PO; +PROTONIX 20 MG20 MG PO; +SUPER THERAVIT1 EACH PO; +TRELEGY ELLIPT1 EACH INH
== END ==
LOC: M.RAD 09:00
PROVIDERS: ATTEND Family Medicine
DX: Z12.31 Encounter for screening mammogram for malignant neoplasm of breast (principal)

== ENCOUNTER → 2020-04-04 | Outpatient (CLI) | payer OTHER | LOC: M.ULTRA 09:06 | PROVIDERS: ATTEND Family Medicine | DX: N63.10 Unspecified lump in the right breast, unspecified quadrant (principal) ==

== ENCOUNTER → 2020-05-02 | Day surgery (SDC) | payer OTHER ==
[~2020-05-02] MED LIST changes: +ASA81BEC PO; +BUDESONIDE8.43 ML INH; +DIPHENHIST50 MG PO; +OMEPRAZOLE40 MG PO; +SPIRIVA RESPIMAT4 GM INH; +ZYRTEC10 M2 PO
--- NOTE | ~2020-05-02 | PROC ---
[address] [address] PROCEDURE REPORT Name: GREGORIA RAI Room: [facility] M.R.#: [id number] Admission: 05/02/20 Attend Phys: Danilo Mills MD Discharge: Date of : 62 Report #: [id number] THIS REPORT FOR: //name// cc: Izabella Hansen MD, Tuongvan T. MD ~ THIS REPORT FOR: //name// For GI report, please see the Provation report in Perceptive 7 content. By: [facility]0Medical Records Staff [facility] /KARLA
--- NOTE | 2020-05-08 11:07 | PATH ---
[facility] [address] [place] [address] PATHOLOGY RPT PROCEDURE Name: KAMARAESA SHELL Room: [facility] Gisselle#: [id number] Admission: 05/02/20 Date of : 62 Discharge: Report #: [id number] Path Case #: [id number] [facility] Accession Number: [id number] . 01 Material submitted: . PART A: colon - DESCENDING COLON POLYP. Modifiers: descending PART B: colon - ASCENDING COLON POLYPS. Modifiers: ascending PART C: colon - SIGMOID COLON POLYPS. Modifiers: sigmoid . 01 Clinical history: . SCREENING COLON . 02 Diagnosis: A. Descending colon polyp: - Tubular adenoma, negative for high-grade dysplasia. . B. Ascending colon polyp(s): - Multiple fragments of tubular adenoma/tubulovillous adenoma(s), negative for high-grade dysplasia. . C. Sigmoid colon polyp(s): - Multiple fragments of tubular adenoma(s), negative for high-grade dysplasia. (LASHAWN:yazmin; 05/08/2020) QMS 05/08/2020 0850 Local . 02 Electronically signed: . Jose Sandhu MD, Pathologist NPI- [id number] . 01 Gross description: . A. The specimen is received in formalin, labeled "Amber Rai, descending colon polyp". Received are multiple segments of pale logan soft tissue ranging in size from 0.3 to 0.5 cm in maximum dimensions. The specimen is submitted entirely in cassette A1. . B. The specimen is received in formalin, labeled "Amber Rai, ascending colon polyp". The specimen is additionally labeled on the requisition as, "ascending colon polyps". Received are multiple segments of pale logan soft tissue ranging in size from 0.1 to 1.3 in maximum dimensions. The surgical margin of the larger segment is inked and the segment is trisected. The specimen is submitted entirely in cassettes B1 through B6. Due to the friable nature of the larger segment, fragmentation has occurred upon sectioning. . C. The specimen is received in saline, labeled "Amber Rai, sigmoid colon polyp". The specimen is additionally labeled on the requisition as, "sigmoid colon polyps". Received are multiple segments [place] [address] PATHOLOGY RPT PROCEDURE Name: AMBER RAI SHELL [id number] Admission: 05/02/20 Date of : 62 Discharge: Report #: [id number] Path Case #: [id number] tissue ranging in size from 0.2 to 1.1 cm in maximum dimensions. The surgical margins of the larger two segments are inked and bisected. The specimen is submitted entirely in cassette C1 through C3. Due to the nature of the largest segment, fragmentation has occurred upon sectioning. (CAA; 05/05/2020) QAC/QAC 05/05/2020 1111 Local . 02 Pathologist provided ICD-10: D12.4, D12.2, D12.5 . 02 CPT . 413852, 922621, 637319 Specimen Comment: A courtesy copy of this report has been sent to [phone] Specimen Comment: [id number] Specimen Comment: Report sent to / DR KEY Performed at: [address], [place], [place] [id number] MD Geovanni Dove MD Phone: [phone] Performed at: [facility] [address], [place], [place] [id number] MD Jose Sandhu MD Phone: [phone]
== END | disposition home or self-care (01) ==
LOC: M.SUR 08:16
PROVIDERS: ATTEND Internal Medicine Gastroenterology
DX: Z12.11 Encounter for screening for malignant neoplasm of colon (principal); D12.4 Benign neoplasm of descending colon; D12.5 Benign neoplasm of sigmoid colon; D12.2 Benign neoplasm of ascending colon; K63.89 Other specified diseases of intestine; F41.9 Anxiety disorder, unspecified; J44.9 Chronic obstructive pulmonary disease, unspecified; M81.0 Age-related osteoporosis without current pathological fracture; Z79.82 Long term (current) use of aspirin; Z79.899 Other long term (current) drug therapy; Z88.8 Allergy status to other drugs, medicaments and biological substances; Z83.3 Family history of diabetes mellitus; Z98.890 Other specified postprocedural states; Z99.81 Dependence on supplemental oxygen

== ENCOUNTER 2020-08-26 16:13 | Inpatient (IN) | payer OTHER ==
[~2020-08-26] VITALS: Ht 157.5 cm; Wt 55.9 kg
[2020-08-26 16:22] VITALS: BP 173/85
[2020-08-26] MEDS ORDERED: LISINOPRIL20 MG PO (17:40)
[2020-08-26 18:23] LABS: HEMATOCRIT 37.4 % (37.0-47.0); HEMOGLOBIN 11.8 gm/dL (12.0-15.0); MCH 30.3 pg (26.0-34.0); MCHC 31.4 g/dL (28.0-37.0); MCV 96.5 fL (80.0-100.0); MPV 8.5 fl. (7.2-11.1); NUCLEATED RBCS 0 /100WBC; PLATELET COUNT* 305 thou/uL (150-400); RBC 3.88 mil/uL (4.20-5.00); RDW-CV 14.6 % (10.5-14.5); WBC 11.8 thou/uL (4.0-11.0)
[2020-08-26 18:33] LABS: CALCIUM 8.7 mg/dL (8.5-10.1); CREATININE 0.9 mg/dL (0.6-1.3)
[2020-08-26 18:35] LABS: APTT 23.4 Seconds (25.0-31.3); INR 0.9
[2020-08-26 18:44] LABS: ABSOLUTE EOSINOPHILS 0.2 thou/uL (0.0-0.7); ABSOLUTE LYMPHOCYTES 1.5 thou/uL (0.8-5.3); ABSOLUTE MONOCYTES 0.1 thou/uL (0.0-1.2); ABSOLUTE NEUTROPHILS 9.9 thou/uL (1.6-8.1); HYPOCHROMASIA 2+; PLATELET ESTIMATE ADEQUATE
[2020-08-26 18:45] LABS: MICROCYTES Occasional
[2020-08-26 18:48] LABS: ALBUMIN 3.5 g/dL (3.4-5.0); MAGNESIUM 2.3 mg/dL (1.8-2.4); TOTAL BILIRUBIN 0.1 mg/dL (<0.1-1.0); TOTAL PROTEIN 6.8 g/dL (6.4-8.2)
[2020-08-26 21:35] VITALS: BP 151/97
[2020-08-26] MEDS ORDERED: CALCIUM500 MG PO (22:13)
[2020-08-26] MEDS ORDERED: FISH OIL 1,0001 EAC1 PO (22:15)
[2020-08-26 23:00] VITALS: BP 151/90
[2020-08-27 04:00] VITALS: BP 138/87
--- NOTE | 2020-08-27 06:01 | NUR ---
RECEIVED REPORT FROM ED RN. PT TRANSFERRED TO 204. PT A&OX4. VSS. FAMILY SERVICE CASEWORKER IN PLACE. ADMISSION HISTORY AND PHYSICAL ASSESSMENT COMPLETED AND CHARTED. ORIENTED TO ROOM & CALL LIGHT. PT ON O2 AT 3L NC/TRILOGY AT HS. PT TRACING SR ON TELE. PT COMPLAINED OF RIGHT UPPER BACK PAIN-MED GIVEN PER OCT. CALL LIGHT WITHINN REACH.
[2020-08-27 07:30] VITALS: BP 176/100
[2020-08-27 08:41] LABS: CALCIUM 8.7 mg/dL (8.5-10.1); CREATININE 0.7 mg/dL (0.6-1.3); POTASSIUM 4.5 mmol/L (3.5-5.1)
[2020-08-27 08:44] LABS: MAGNESIUM 2.2 mg/dL (1.8-2.4); PHOSPHORUS* 2.7 mg/dL (2.5-4.9)
--- NOTE | 2020-08-27 10:02 | EKG ---
[place] [address] ELECTROCARDIOGRAM REPORT Name: GREGORIA RAI Room: [address] ADM IN ..#: [id number] Admission: 08/26/20 Attend Phys: Zachary Ash, Discharge: Date of : 62 Date of Service: 08/26/20 190 Report #: [id number] THIS REPORT FOR: //name// [facility] ED Test Date: 2020-08-26 Test Time: 19:01:56 Pat Name: GREGORIA RAI Department: Room: [facility] Gender: F Sole Inker: YANN : 1960 Requested By: Barrett Goldman Order Number: [id number] MD: Ben Romero Measurements Intervals [place] Rate: 81 P: 73 UT: 144 QRS: 45 QRSD: 85 T: 69 QT: 367 QTc: 426 Interpretive Statements Sinus rhythm Probable anteroseptal infarct, old Compared to ECG 12/04/2018 22:14:44 Sinus tachycardia no longer present Electronically Signed On 08-27-2020 10:02:05 PNEUMATIC SYSTEM CONVEYOR OPERATOR by Ben Romero [email or web address] <ELECTRONICALLY SIGNED> By: Ben Romero MD, FAC 08/27/20 1002 190 00 Ben Romero MD, [facility] /EPI
--- NOTE | 2020-08-27 11:04 | NUR ---
Pt is A&O. Resides at home with dad. Independent. Pt on 3L o2 continuous and has a triology, all provided through [employer]. Hx of [facility] HH. No hx of SNF. Pt states that she hopes to get on the lung transplant list in November. Goal is home at dc, no needs anticipated, Pt should be ready to dc in a few days. Pt will need a tank brought to the hospital at dc.
[2020-08-27 12:15] VITALS: BP 140/80
--- NOTE | 2020-08-27 16:42 | NUR ---
PT CURRENLTY RESTING IN BED, WATCHING TV- ELECTRICIAN'S ASSISTANT IN PLACE ORDERED, TRACING SR- HF O2 AT [address] INDCIATED R/T SMALL RIGHT PNEUMONTHORAX- FENT X2 THIS SHIFT FOR RIGHT SIDE BACK PAIN, PT REPORTS MEDICATION TO BE EFFECTIVE- HEATING PAD FOR COMFORT- MRSA SWAB COLLECTED AND SENT TO LAB FOR TESTING- CALL LIGHT AND PERSONAL BELONGINGS WITH IN REACH- ALL NEEDS MET AT THIS TIME
[2020-08-27 16:54] VITALS: BP 145/82
[2020-08-27 20:00] VITALS: BP 147/83
[2020-08-28 04:21] VITALS: BP 123/73
--- NOTE | 2020-08-28 07:32 | NUR ---
ASSUMED PT'S CARE @ ABOUT 1900. ALERT AND ORIENTED. VSS ON 15L HFC. PT TOOK MEDS PER EMAR. PRN PAIN MEDS UTILIZED THIS SHIFT. ABLE TO AMBULATE INDEPENDENTLY TO BSC. PT VOICED SLEEPING WELL THIS SHIFT. MRSA RESULTED POSITIVE. CONTACT ISOLATION PRECAUTION INITIATED. CALL LIGHT WITHIN REACH. WILL CONTINUE TO MONITOR.
[2020-08-28 07:55] VITALS: BP 134/74
--- NOTE | 2020-08-28 09:44 | NUR ---
ASSUMED CARE OF PT THIS AM AROUND 0715- NONFARM ANIMAL CARETAKER IN PLACE ORDERED, TRACING SR- UPON ASSESSMENT PT NOTED TO BE RESTING BED- PT A&O X4- CONT OF B/B- UP AD-RAZIA TO BED SIDE COMMODE- DYSPNEA NOTED ON EXERTION- EXPIRATORY WHEEZES NOTED- O2 TITRATED TO 5L INDICATED, O2 SAT 97%- VSS- ABD SOFT/ROUND/NON-TENDER, BS X4 QUADS- LAST BM REPORTED 08/26/20- IV NOTED TO LEFT AC INTACT AND SL, IV ABT GIVEN THIS AM PRESCRIBED-PT REPORTS PAIN TO RIGHT BACK/SIDE AND MID CHEST R/T COUGHING, PRN FENT GIVEN THIS AM AT 0800- PT REPORTS MEDICATION TO ZOIE EFFECTIVE- CALL LIGHT AND PERSONAL BELONGINGS WITH IN REACH- ALL NEEDS MET AT THIS TIME
[2020-08-28 12:22] VITALS: BP 134/76
--- NOTE | 2020-08-28 12:35 | NUR ---
Wean o2. Plan dc to home tomorrow. No needs anticipated.
[2020-08-28 16:39] VITALS: BP 127/81
[2020-08-28 20:00] VITALS: BP 161/90
[2020-08-29] VITALS: BP 126/70
[2020-08-29 04:00] VITALS: BP 135/84
[2020-08-29 08:00] VITALS: BP 125/87
[2020-08-29] MEDS ORDERED: PREDNISONE 10 M10 MG PO (08:16)
[2020-08-29] MEDS ORDERED: AZITHROMYCIN 2250 MG PO (08:16)
[2020-08-29] MEDS ORDERED: GUAIFENESIN AC473 ML PO (08:16)
[2020-08-29 08:37] VITALS: BP 135/84
[2020-08-29 11:09] VITALS: BP 135/84
== END 2020-08-29 13:38 | disposition home or self-care (01) | DRG 199 ==
LOC: M.ERS 16:13 → M.2W 18:03 → M.TBA-ER 18:03 → M.2W 21:46
PROVIDERS: Family Medicine; Internal Medicine; ADMIT Internal Medicine; ATTEND Internal Medicine
PROC: 5A09357 Assistance with Respiratory Ventilation, Less than 24 Consecutive Hours, Continuous Positive Airway Pressure (ICD-10-PCS; principal; 2020-08-26)
PROC: 5A0935A Assistance with Respiratory Ventilation, Less than 24 Consecutive Hours, High Flow/Velocity Cannula (ICD-10-PCS; 2020-08-27)
PROC: 5A0935A Assistance with Respiratory Ventilation, Less than 24 Consecutive Hours, High Flow/Velocity Cannula (ICD-10-PCS; 2020-08-28)
DX: J93.11 Primary spontaneous pneumothorax (principal); J96.01 Acute respiratory failure with hypoxia; J15.9 Unspecified bacterial pneumonia; J45.909 Unspecified asthma, uncomplicated; I10 Essential (primary) hypertension; J43.9 Emphysema, unspecified; G47.33 Obstructive sleep apnea (adult) (pediatric); K21.9 Gastro-esophageal reflux disease without esophagitis; Z20.822 Contact with and (suspected) exposure to COVID-19; M81.0 Age-related osteoporosis without current pathological fracture; B95.62 Methicillin resistant Staphylococcus aureus infection as the cause of diseases classified elsewhere; Z90.710 Acquired absence of both cervix and uterus; Z88.1 Allergy status to other antibiotic agents; Z87.891 Personal history of nicotine dependence; Z79.899 Other long term (current) drug therapy

== ENCOUNTER 2020-09-03 20:28 | Emergency (ER) | payer OTHER ==
[~2020-09-03] VITALS: Ht 157.5 cm; Wt 53.1 kg
[~2020-09-03 20:28] MED LIST changes: +AZITHROMYCIN 2250 MG PO; +CALCIUM500 MG PO; +FISH OIL 1,0001 EAC1 PO; +GUAIFENESIN AC473 ML PO; +LISINOPRIL20 MG PO
[2020-09-03 21:03] LABS: HEMATOCRIT 36.6 % (37.0-47.0); HEMOGLOBIN 11.9 gm/dL (12.0-15.0); MCH 30.9 pg (26.0-34.0); MCHC 32.5 g/dL (28.0-37.0); MCV 94.9 fL (80.0-100.0); MPV 8.2 fl. (7.2-11.1); NUCLEATED RBCS 0 /100WBC; PLATELET COUNT* 303 thou/uL (150-400); RBC 3.86 mil/uL (4.20-5.00); RDW-CV 14.4 % (10.5-14.5); WBC 11.4 thou/uL (4.0-11.0)
[2020-09-03 21:15] LABS: ANION GAP 7 mmol/L (7-16); BUN 9 mg/dL (7-18); CHLORIDE 101 mmol/L (98-107); CO2 30 mmol/L (21-32); CREATININE 0.8 mg/dL (0.6-1.3); GLUCOSE 140 mg/dL (70-99); POTASSIUM 4.4 mmol/L (3.5-5.1); SODIUM 138 mmol/L (136-145)
[2020-09-03 21:16] LABS: BE 0.2 mmol/L (-2 to +3); PCO2 42.6 mmHg (35.0-45.0); pH 7.391 (7.340-7.450)
[2020-09-03 21:18] LABS: PO2 155.5 mmHg (75.0-100.0)
[2020-09-03 21:26] LABS: ALBUMIN 3.6 g/dL (3.4-5.0); ALKALINE PHOSPHATASE 52 U/L (46-116); NT-PRO BRAIN NAT PEPTIDE 127 pg/mL (<300); SGOT < 5 U/L (15-37); SGPT 16 U/L (30-65); TOTAL BILIRUBIN 0.2 mg/dL (<0.1-1.0); TOTAL PROTEIN 6.8 g/dL (6.4-8.2)
[2020-09-03 21:36] LABS: APTT 22.4 Seconds (25.0-31.3); INR 0.9
[2020-09-03] MEDS ORDERED: GUAIFENESIN-CODE5 ML PO (21:44)
[2020-09-03 21:54] VITALS: BP 148/75
[2020-09-03 22:24] LABS: ABSOLUTE BASOPHILS 0.1 thou/uL (0.0-0.2); ABSOLUTE MONOCYTES 0.7 thou/uL (0.0-1.2); ABSOLUTE NEUTROPHILS 7.6 thou/uL (1.6-8.1); ANISOCYTOSIS Occasional; CLUMPED PLTS FEW; LARGE PLATELETS OCCASIONAL; PLATELET ESTIMATE ADEQUATE; TOXIC GRANULATION 1+
--- NOTE | 2020-09-04 15:59 | EKG ---
[place] [address] ELECTROCARDIOGRAM REPORT Name: GREGORIA RAI Room: [facility]#: [id number] Admission: 09/03/20 Attend Phys: Discharge: 09/03/20 Date of : 62 Date of Service: 09/03/202041 Report #: [id number] THIS REPORT FOR: //name// [facility] ED Test Date: 2020-09-03 Test Time: 20:42:53 Pat Name: GREGORIA RAI Department: Room: Gender: Clamper: : 1960 Requested By: Jaleesa Segura Order Number: [id number] MD: Oswald Slater Measurements Intervals [place] Rate: 123 P: 86 [place]: 130 QRS: -5 QRSD: 148 T: 108 QT: 312 QTc: 447 Interpretive Statements Sinus tachycardia LAE, consider biatrial enlargement Artifact in lead(s) I,II,aVR,aVL,V1,V2,V3,V4,V5,V6 Compared to ECG 08/26/2020 19:01:56 Sinus rhythm no longer present Electronically Signed On 09-04-2020 15:59:09 ENGAGEMENT ENGINEER by Oswald Slater [email or web address] <ELECTRONICALLY SIGNED> By: Oswald Slater MD, FAC 09/04/20 1559 41 41 Oswald Slater MD, [facility] /EPI
== END 2020-09-03 21:55 | disposition home or self-care (01) ==
LOC: M.ERS 20:28
PROVIDERS: Nurse Practitioner Family
DX: J44.1 Chronic obstructive pulmonary disease with (acute) exacerbation (principal); H11.31 Conjunctival hemorrhage, right eye; K21.9 Gastro-esophageal reflux disease without esophagitis; I10 Essential (primary) hypertension; Z90.710 Acquired absence of both cervix and uterus; Z90.49 Acquired absence of other specified parts of digestive tract; Z87.891 Personal history of nicotine dependence; Z79.899 Other long term (current) drug therapy; Z79.2 Long term (current) use of antibiotics; Z88.1 Allergy status to other antibiotic agents; Z20.828 Contact with and (suspected) exposure to other viral communicable diseases

== ENCOUNTER → 2020-11-12 | Day surgery (SDC) | payer OTHER ==
[~2020-11-12] MED LIST changes: +ADVIL200 M3 PO; +DALIRESP500 MCG PO; +GUAIFENESIN-CODE5 ML PO; +PULMICORT0.5 MG/2 M INH; +VITAMIN D-40010 MCG; +VITAMIN D3-CAL1 EACH PO
--- NOTE | ~2020-11-12 | PROC ---
[address] [address] PROCEDURE REPORT Name: GREGORIA RAI Room: [facility].#: [id number] Admission: 11/12/20 Attend Phys: Meng Jaffe DO Discharge: Date of : 62 Report #: [id number] THIS REPORT FOR: cc: Izabella Hansen MD, Tuongvan T. MD [facility],Medical Records Staff ~ For GI report, please see the Provation report in Perceptive 7 content. By: 1352Medical Records Staff [facility] /KARLA
[2020-11-12 08:54] LABS: HEMATOCRIT 35.7 % (37.0-47.0); HEMOGLOBIN 11.6 gm/dL (12.0-15.0); MCH 29.2 pg (26.0-34.0); MCHC 32.5 g/dL (28.0-37.0); MCV 89.7 fL (80.0-100.0); MPV 7.8 fl. (7.2-11.1); RBC 3.98 mil/uL (4.20-5.00); RDW-CV 14.8 % (10.5-14.5); WBC 5.6 thou/uL (4.0-11.0)
[2020-11-12 09:00] LABS: CALCIUM 9.6 mg/dL (8.5-10.1); CREATININE 0.7 mg/dL (0.6-1.3); POTASSIUM 3.6 mmol/L (3.5-5.1)
--- NOTE | 2020-11-12 09:33 | EKG ---
[place] [address] ELECTROCARDIOGRAM REPORT Name: GREGORIA RAI Room: [facility]#: [id number] Admission: 11/12/20 Attend Phys: Meng Jaffe, Discharge: Date of : 62 Date of Service: 11/12/20 0850 Report #: [id number] THIS REPORT FOR: //name// [facility] Test Date: 2020-11-12 Test Time: 08:50:47 Pat Name: GREGORIA RAI Department: Room: Gender: F Signs And Displays Salesperson: : 1960 Requested By: Meng Jaffe Order Number: [id number] MD: Edmundo Ko Measurements Intervals [place] Rate: 105 P: 77 MA: 143 QRS: 25 QRSD: 87 T: 86 QT: 330 QTc: 437 Interpretive Statements Sinus tachycardia Consider right atrial enlargement Probable inferior infarct, old Probable anteroseptal infarct, old Compared to ECG 09/03/2020 20:42:53 Myocardial infarct finding now present Electronically Signed On 11-12-2020 9:33:22 CDT by Edmundo Ko [email or web address] <ELECTRONICALLY SIGNED> By: Christiano Ko MD, [facility] 11/12/20 0933 0850 0850 Christiano Ko MD, [facility] /EPI
[2020-11-12 18:29] LABS: ALBUMIN 4.1 g/dL (3.4-5.0); DIRECT BILIRUBIN 0.1 mg/dL (<0.1-0.3); TOTAL BILIRUBIN 0.4 mg/dL (<0.1-1.0); TOTAL PROTEIN 7.4 g/dL (6.4-8.2)
--- NOTE | 2020-11-14 16:06 | PATH ---
[facility] [address] [place] [address] PATHOLOGY RPT PROCEDURE Name: AMBER RAI SHELL Room: [facility].Rosario.#: [id number] Admission: 11/12/20 Date of : 62 Discharge: Report #: [id number] Path Case #: [id number] [facility] Accession Number: [id number] . 01 Material submitted: . PART A: cecum - 2 POLYP COLD SNARE, 1 POLYP HOT SNARE IN CECUM PART B: colon - PROXIMAL ASCENDING COLON BIOPSIES. Modifiers: proximal, ascending PART C: colon - PROXIMAL TRANSVERSE COLON COLD SNARE POLYP. Modifiers: proximal, transverse . 01 Clinical history: . EGD AND COLONOSCOPY PERSONAL HISTORY OF COLON POLYPS, FAMILY HISTORY OF COLON . 01 Diagnosis: A. Colonic mucosa "One polyp hot snare and cecum": - Multiple fragments of tubular adenoma. - There is no evidence of high-grade dysplasia or malignancy. . B. Colonic mucosa "ascending colon biopsies": - Tubular adenoma with less than a mm focus of high grade dysplasia - See comment. . C. Colonic mucosa "proximal transverse colon polyp cold snare biopsies": - Tubulovillous adenoma. - There is no evidence of high-grade dysplasia or malignancy. (SHA:pit 11/14/2020) QTP 11/14/2020 1552 Local . 01 Comment: Part B of this case was also reviewed by Dr. Kelly Pearl on 11/14/2020 at 3pm. . 01 Electronically signed: . Maximo Barnhart MD, Pathologist NPI- [id number] . 01 Gross description: . A. Received in formalin labeled "Amber Rai, two polyp cold snare, one polyp hot snare, and cecum" are multiple logan-brown soft tissue fragments measuring in aggregate 1.3 x 0.5 x 0.1 cm. The specimen is submitted entirely in A1. . B. Received in formalin labeled "Amber Rai, proximal ascending colon biopsies" are 2 logan-brown soft tissue fragments measuring in aggregate 0.5 x 0.3 x 0.1 cm. The specimen is submitted entirely in B1[place] [address] PATHOLOGY RPT PROCEDURE Name: AMBER RAI SHELL Room: [facility] NadineIngrid#: [id number] Admission: 11/12/20 Date of : 62 Discharge: Report #: [id number] Path Case #: [id number] C. Received in formalin labeled "Rai, Amber, proximal transverse colon polyp cold snare" are 2 logan-brown soft tissue fragments measuring in aggregate 0.5 x 0.4 x 0.1 cm. The specimen is submitted entirely in C1. [place] [place] [facility] 11/13/2020 1525 Local . 01 Pathologist provided ICD-10: D12.0, D12.2, D12.3 . 01 CPT . 227632, 848371, 218769 Specimen Comment: A courtesy copy of this report has been sent to [phone], [phone]- Specimen Comment: [phone] Specimen Comment: Report sent to / DR KEY Performed at: [facility] [address], [place], [place] [address] MD Maximo Barnhart MD Phone: [phone]
== END | disposition home or self-care (01) ==
LOC: M.SUR 05:48
PROVIDERS: ATTEND Internal Medicine Gastroenterology
DX: Z12.11 Encounter for screening for malignant neoplasm of colon (principal); Z86.010 Personal history of colon polyps; Z80.0 Family history of malignant neoplasm of digestive organs; R12 Heartburn; D12.0 Benign neoplasm of cecum; D12.2 Benign neoplasm of ascending colon; D12.3 Benign neoplasm of transverse colon; I10 Essential (primary) hypertension; J43.9 Emphysema, unspecified; M81.0 Age-related osteoporosis without current pathological fracture; Z98.890 Other specified postprocedural states; Z79.899 Other long term (current) drug therapy; Z88.8 Allergy status to other drugs, medicaments and biological substances

== ENCOUNTER → 2021-01-01 | Outpatient (CLI) | payer OTHER | LOC: M.RAD 08:31 | PROVIDERS: ATTEND Nurse Practitioner Family | DX: M81.0 Age-related osteoporosis without current pathological fracture (principal) ==

== ENCOUNTER → 2021-04-01 | Outpatient (CLI) | payer OTHER | LOC: M.RAD 09:58 | PROVIDERS: ATTEND Family Medicine | DX: Z12.31 Encounter for screening mammogram for malignant neoplasm of breast (principal) ==

== ENCOUNTER 2021-06-16 19:58 | Emergency (ER) | payer OTHER ==
[~2021-06-16] VITALS: Ht 157.5 cm; Wt 45.4 kg
[2021-06-16] MEDS ORDERED: SLOW FE142 MG PO (20:10)
[2021-06-16] MEDS ORDERED: IPRAT-ALBUT 0.5-3 ML (20:10)
[2021-06-16] MEDS ORDERED: DALIRESP500 MCG PO (20:10)
[2021-06-16] MEDS ORDERED: BREZTRI AEROS10.7 GM (20:11)
[2021-06-16] MEDS ORDERED: KETOCONAZOLE15 GM TOP (21:09)
[2021-06-16] MEDS ORDERED: DOXYCYCLINE 10100 MG PO (21:09)
[2021-06-16] MEDS ORDERED: HYDROCODON-ACE1 EAC8 PO (21:15)
[2021-06-16 21:30] VITALS: BP 185/86
== END 2021-06-16 21:30 | disposition home or self-care (01) ==
LOC: M.ERS 19:58
DX: L03.116 Cellulitis of left lower limb (principal); J44.9 Chronic obstructive pulmonary disease, unspecified; I10 Essential (primary) hypertension; K21.9 Gastro-esophageal reflux disease without esophagitis; Z90.710 Acquired absence of both cervix and uterus; Z90.49 Acquired absence of other specified parts of digestive tract; Z79.899 Other long term (current) drug therapy; Z87.891 Personal history of nicotine dependence; Z88.8 Allergy status to other drugs, medicaments and biological substances

== ENCOUNTER 2021-06-18 11:13 | Inpatient (IN) | payer OTHER ==
[~2021-06-18] VITALS: Ht 157.5 cm; Wt 45.4 kg
[~2021-06-18 11:13] MED LIST changes: +BREZTRI AEROS10.7 GM; +DOXYCYCLINE 10100 MG PO; +HYDROCODON-ACE1 EAC8 PO; +IPRAT-ALBUT 0.5-3 ML; +KETOCONAZOLE15 GM TOP; +SLOW FE142 MG PO
[2021-06-18 11:19] VITALS: BP 141/80
[2021-06-18 13:23] LABS: ABSOLUTE EOSINOPHILS 0.3 thou/uL (0.0-0.7); ABSOLUTE LYMPHOCYTES 1.5 thou/uL (0.8-5.3); ABSOLUTE MONOCYTES 0.5 thou/uL (0.0-1.2); ABSOLUTE NEUTROPHILS 5.9 thou/uL (1.6-8.1); BASOPHILS 0.4 %; EOSINOPHILS 3.2 %; HEMATOCRIT 31.5 % (37.0-47.0); HEMOGLOBIN 10.4 gm/dL (12.0-15.0); LYMPHOCYTES 18.4 %; MCH 29.5 pg (26.0-34.0); MCHC 33.1 g/dL (28.0-37.0); MCV 89.2 fL (80.0-100.0); MONOCYTES 6.4 %; MPV 7.5 fl. (7.2-11.1); NUCLEATED RBCS 0 /100WBC; PLATELET COUNT* 441 thou/uL (150-400); POLYS 71.6 %; RBC 3.53 mil/uL (4.20-5.00); RDW-CV 14.1 % (10.5-14.5); WBC 8.3 thou/uL (4.0-11.0)
[2021-06-18 13:40] LABS: CALCIUM 9.5 mg/dL (8.5-10.1); CREATININE 0.7 mg/dL (0.6-1.3); POTASSIUM 4.5 mmol/L (3.5-5.1)
[2021-06-18 13:45] LABS: ALBUMIN 3.7 g/dL (3.4-5.0); TOTAL BILIRUBIN 0.3 mg/dL (<0.1-1.0); TOTAL PROTEIN 7.9 g/dL (6.4-8.2)
[2021-06-18 16:55] VITALS: BP 143/77
--- NOTE | 2021-06-18 19:00 | NUR ---
TALKED TO DR VALDEZ REGARDING PAIN MEDS. VO GIVEN AND FAXED TO PHARMACY
[2021-06-18 20:59] VITALS: BP 115/73
[2021-06-18 22:50] VITALS: BP 118/72; BP 122/75
--- NOTE | 2021-06-18 22:50 | NUR ---
PT ADMITTED TO FLOOR PER CART ACCOMPANIED BY ER STAFF WITH BELONGINGS. ORIENTED TO ROOM AND CALL LITE. PT AOX4, CONVERSATIONAL. O23L NC SAT 96%. RAC SL IV FLUSHES WELL. L FOOT REDNESS AND EDEMA, PHOTO TAKEN AND PLACED ON CHART. PT DENIES PAIN AT PRESENT. HISTORY OBTAINED AND ASSESSMENT PERFORMED, SEE ADMT NOTES. CALL LITE IN EASY REACH, WILL CONTINUE TO MONITOR AND PROVIDE CARES NEEDED.
--- NOTE | 2021-06-19 05:55 | NUR ---
PT HAS SLEPT WELL SINCE ADMIT. RECEIVING IV PAIN MED ONCE THIS SHIFT FOR CO L FOOT PAIN WITH GOOD RESULT. IV ABX GIVEN ORDERED. UP INDEP TO BSC TO VOID. O2 3L NC. NO LABS THIS MORNING.AOX4, ABLE TO USE CALL LITE AND MAKE NEEDS KNOWN.
[2021-06-19 09:36] VITALS: BP 125/74
[2021-06-19 11:13] LABS: ABSOLUTE EOSINOPHILS 0.4 thou/uL (0.0-0.7); ABSOLUTE LYMPHOCYTES 1.1 thou/uL (0.8-5.3); ABSOLUTE MONOCYTES 0.6 thou/uL (0.0-1.2); ABSOLUTE NEUTROPHILS 5.3 thou/uL (1.6-8.1); BASOPHILS 0.5 %; EOSINOPHILS 4.8 %; HEMATOCRIT 31.3 % (37.0-47.0); HEMOGLOBIN 10.3 gm/dL (12.0-15.0); LYMPHOCYTES 15.3 %; MCH 29.5 pg (26.0-34.0); MCV 89.3 fL (80.0-100.0); NUCLEATED RBCS 0 /100WBC; PLATELET COUNT* 428 thou/uL (150-400); POLYS 71.4 %; RDW-CV 13.7 % (10.5-14.5); WBC 7.4 thou/uL (4.0-11.0)
[2021-06-19 11:29] LABS: CREATININE 0.6 mg/dL (0.6-1.3); POTASSIUM 4.5 mmol/L (3.5-5.1)
--- NOTE | 2021-06-19 12:12 | NUR ---
Nutrition: Consult recebad that read "none needed." Pt has low BMI and ceelulitis of Lt foot. She has COPD, osteoporosis, asthma, and on lung transplant list. She takes a MVI at home. She is eating 100% of her meals. Wt: is at usual of 100#. 2gm Na diet ordered. She likes Ensure and agreed to them TID - RD will order. She is thin. Physician indicated moderate PCM - defer. Wt is stable, po intake is good, protein stores are WNL. Consider mild risk. Pt is knowledgeable about her diet and nutrition needs for high protein and kcals.
[2021-06-19 17:00] VITALS: BP 136/96
--- NOTE | 2021-06-19 18:28 | NUR ---
CM ASSESSMENT THIS GENERAL DOC UNABLE TO MEET WITH PT FOR ASSESSMENT. THIS GENERAL DOC ATTMEPTED TO OBTAIN ADDITIONAL INFORMATION REGARDING PT FROM AUTHORIZED CONTACTS, BUT NEITHER PHONE NUMBER FOR PT DAUGHTER OR SON WERE WORKING. THIS GENERAL DOC TO ATTMEPT AT ANOTEHR TIME. PT NOT YET MEDICALLY CLEAR TO DISCHRGE.
[2021-06-19 20:00] VITALS: BP 116/76
--- NOTE | 2021-06-20 04:58 | NUR ---
PT HAS SLEPT WELL OVERNIGHT. RECEIVING IV PAIN MED ABOUT EVERY 4 HOURS FOR CO L FOOT PAIN. UP INDEP TO BSC TO VOID. O2 3L NC. L FOOT REMAINS EDEMATOUS, WARM AND RED. PODIATRY AND ORTHO FOLLOWING. AOX4, ABLE TO USE CALL LITE AND MAKE NEEDS KNOWN.
[2021-06-20 08:00] VITALS: BP 121/72
[2021-06-20] MEDS ORDERED: CEFDINIR300 MG PO (08:48)
[2021-06-20 16:24] VITALS: BP 116/53
--- NOTE | 2021-06-20 18:32 | NUR ---
I ASSUMED CARE OF THE PATIENT AT 0700. SHE IS ALERT AND ORIENTED X4 AND IS UP AD RAZIA TO THE COMMODE. BED IS IN THE LOW LOCKED POSITION AND CALL LIGHT IS IN REACH. PAIN IS PARTIALLY MANAGED WITH PRN MEDS. HOURLY ROUNDING IS COMPLETED AND PATIENT NEEDS ARE MET. HER DAD IS AT THE BEDSIDE PART OF THE DAY AND HE BROUGHT HER TRILOGY FROM HOME FOR NOC. PODIATRY HAS DECIDED THAT SHE WILL HAVE SURGERY ON TUESDAY. NEW IV WAS ESTABLISHED FOR ANTIBIOTICS. SHE IS WORRIED ABOUT MULTIPLE UPCOMING APPOINTMENTS FOR HER UPCOMING LUNG TRANSPLANT IN [facility]. WILL CONTINUE TO MONITOR.
[2021-06-20 20:00] VITALS: BP 120/62
--- NOTE | 2021-06-21 06:34 | NUR ---
PATIENT SLEPT WELL DURING THIS SHIFT. PT WITH ANTIBIOTICS INFUSING PER DR ORDER AND IS THEN SALINE LOCKED. PT IS ON O2 @ 3 LITERS PER NASAL CANNULA AND ON HOME TRILOGY AT NIGHT. PT WITH RED, WARM, SWOLLEN AREA ON LT FOOT. AREA MARKED WITH BLACK MARKER TO MONITOR AREA. BLACKENED AREA BETWEEN 4TH AND 5TH TOES ON LT FOOT. REQUESTED FENTANYL 50MCG IV X3 DOSES DURING THIS SHIFT. PT IS UP AD RAZIA TO BATHROOM. FREQUENTLY USED ITEMS AND CALL LIGHT WITHIN REACH. SIDERAILS UPX2. WILL CONTINUE TO MONITOR.
[2021-06-21 08:15] VITALS: BP 122/52
[2021-06-21 16:13] VITALS: BP 119/61
--- NOTE | 2021-06-21 16:14 | NUR ---
ALERT AND ORIENTED X4. UP AD RAZIA TO BEDSIDE COMMODE. USING IV PAIN MEDICATION TO HELP WITH PAIN. HAS DARK AREA BETWEEN 4TH AND 5TH TOES LEFT FOOT. TOP OF LEFT FOOT REMAINS PINK. CONTINUES ON IV ANTIBIODICS. SURGERY SCHEDULED FOR 06/22. NPO AFTER MIDNIGHT TONIGHT. REMAINS ON O2 AT 3L/NC TO KEEP O2 SATS GREATER THAN 90. USES CALL LIGHT FOR ASSIST,
[2021-06-22 02:57] VITALS: BP 119/61
--- NOTE | 2021-06-22 04:16 | NUR ---
PATIENT SLEPT WELL DURING THIS SHIFT. PT REQUESTING PAIN MEDICATION FOR LT FOOT AND RECEIVED FENTANYL 50MCG IV X2. PT IS ON O2 @ 3LITERS PER NC. PT WITH SALINE LOCK IN RT FOREARM WITH ANTIBIOTICS INFUSING PER DR ORDER. PT UP AD RAZIA TO BATHROOM. BLACK LINE AROUND REDNESS ON LT FOOT IN PLACE. RED AREA IS SMALLER THAN UPON ADMISSION AND BLACKENED AREA BETWEEN 4TH AND 5TH TOES IS RED BLOODY LOOKING UNDER THE SKIN. PT HAS BEEN NPO SINCE MIDNIGHT FOR 0900 I/D ON FOOT. FREQUENTLY USED ITEMS AND CALL LIGHT WITHIN REACH. SIDERAILS UPX2. WILL CONTINUE TO MONITOR.
[2021-06-22 07:30] VITALS: BP 113/83
[2021-06-22 11:13] VITALS: BP 113/83
--- NOTE | 2021-06-22 15:59 | NUR ---
CM FOLLOWUP CM AND PROVIDERS MET TO DISCUSS PLAN OF CARE. PT NOT MEDICALLY CLEAR TO DISCAHRGE AND CURRENTLY UNDERGOING SURGERY. CM TO CONTINUE TO FOLLOW FOR DISCHARGE PLANNING NEEDS.
[2021-06-22 16:00] VITALS: BP 107/67
--- NOTE | 2021-06-22 17:13 | NUR ---
PATIENT ALERT AND ORIENTED X4. HAD I AND D SURGERY TODAY. DRESSING DRY AND INTACT. LEFT TOES HAVE GOOD CAPILLARY RETURN. TOES WARM AND PINK. WBAT WITH SURGICAL SHOE. REMAINS ON O2 AT 3L/NC. USING IV AND PO PAIN MEDICATION TO HELP WITH PAIN.
[2021-06-23] VITALS: BP 123/78
--- NOTE | 2021-06-23 06:35 | NUR ---
PATIENT SLEPT WELL DURING THIS SHIFT. PT IS ON O2 @ 3L PER NC AND ON HOME CPAP AT NIGHT. PT WAS AMBULATING TO BATHROOM TO VOID PRIOR TO HAVING I/D DONE ON LT FOOT YESTERDAY BUT NOW C/O TOO MUCH PAIN AND STARTED USING THE BSC. PT REQUESTED PAIN MEDICATION FOR LT FOOT AND RECEIVED FENTANYL 50MCG IV X3. ICE PACK PROVIDED WHEN NEEDED. PT IS SLEEPING AT THIS TIME. FREQUENTLY USED ITEMS AND CALL LIGHT WITHIN REACH. SIDERAILS UPX2. WILL CONTINUE TO MONITOR.
[2021-06-23 08:05] VITALS: BP 130/77
--- NOTE | 2021-06-23 08:48 | EKG ---
[place] [address] ELECTROCARDIOGRAM REPORT Name: GREGORIA RAI Room: [address] ADM IN M.R.#: [id number] Admission: 06/18/21 Attend Phys: Roberto Carlos Recio Discharge: Date of : 62 Date of Service: 06/22/21 0433 Report #: [id number] THIS REPORT FOR: //name// [facility] Test Date: 2021-06-22 Test Time: 04:33:11 Pat Name: GREGORIA RAI Department: Room: [address] Gender: F Community Service Specialist: : 1960 Requested By: Roberto Carlos Recio Order Number: [id number] Jamar MD: Oswald Slater Measurements Intervals [place] Rate: 84 P: 86 DC: 161 QRS: 55 QRSD: 92 T: 76 QT: 361 QTc: 427 Interpretive Statements Sinus rhythm Minimal ST elevation, anterior leads, early repolarization Compared to ECG 11/12/2020 08:50:47 ST (T wave) deviation now present Sinus tachycardia no longer present Myocardial infarct finding no longer present Electronically Signed On 06-23-2021 8:47:44 LOOM CONTROL CHAIN BUILDER by Oswald Slater [email or web address] <ELECTRONICALLY SIGNED> By: Oswald Slater MD, FACC 06/23/21 0847 2 043 Oswald Slater MD, FACC /EPI
[2021-06-23 11:47] VITALS: BP 130/77
[2021-06-23 13:37] VITALS: BP 130/77
--- NOTE | 2021-06-23 14:47 | NUR ---
PT DISCHARGED HOME. COPY OF DISCHARGE PAPERWORK TO PT WITH EXPLAINATION. PT VERBALIZED UNDERSTANDING. PT TRANSPORTED TO PRIVATE VEHICHLE BY WHEELCHAIR. PER PT CALL BACK I WILL NOTIFY DR VALDEZ THAT PT DID NOT RECEIVE ANY PAIN MEDICATION FROM HER PHARMACY. DRESSING TO L FOOT C/D/I.
--- NOTE | 2021-06-23 16:59 | NUR ---
Case Management Assessment Assessment completed with pt. Pt resides with father and aunt and would liike to return home when medically clear. Pt independent with ADLs and only DMe is oxygen. Pt on lung transplant list. Pt has no history of rehab or skilled services. Pt had prior HH, but does not want referral to HH upon discharge. Pt discharged home 06/23/21
[2021-06-23] MEDS ORDERED: HYDROCODON-ACE1 EAC8 PO (17:15)
== END 2021-06-23 14:55 | disposition home or self-care (01) | DRG 571 ==
LOC: M.ERS 11:13 → M.TBA-ER 13:04 → M.3W 13:04
PROVIDERS: Physician Assistant; ADMIT Internal Medicine; ATTEND Internal Medicine
PROC: 5A09357 Assistance with Respiratory Ventilation, Less than 24 Consecutive Hours, Continuous Positive Airway Pressure (ICD-10-PCS; principal; 2021-06-22)
PROC: 0JBR0ZZ Excision of Left Foot Subcutaneous Tissue and Fascia, Open Approach (ICD-10-PCS; 2021-06-22)
DX: L03.116 Cellulitis of left lower limb (principal); L02.612 Cutaneous abscess of left foot; E87.1 Hypo-osmolality and hyponatremia; E44.0 Moderate protein-calorie malnutrition; Z68.1 Body mass index [BMI] 19.9 or less, adult; J44.9 Chronic obstructive pulmonary disease, unspecified; G47.33 Obstructive sleep apnea (adult) (pediatric); Z20.822 Contact with and (suspected) exposure to COVID-19; K21.9 Gastro-esophageal reflux disease without esophagitis; I10 Essential (primary) hypertension; Z87.01 Personal history of pneumonia (recurrent); Z90.49 Acquired absence of other specified parts of digestive tract; Z90.710 Acquired absence of both cervix and uterus; Z76.82 Awaiting organ transplant status; Z79.899 Other long term (current) drug therapy; Z88.1 Allergy status to other antibiotic agents; Z87.891 Personal history of nicotine dependence; Z99.81 Dependence on supplemental oxygen